=== PATIENT | female | born 1985 | race Caucasian/White ===

== ENCOUNTER 2018-03-27 12:56 | Emergency (ER) | payer MEDICAID, OTHER ==
[~2018-03-27] VITALS: Ht 157.5 cm; Wt 48.9 kg
[~2018-03-27 12:56] MED LIST: birth control pill
[2018-03-27 12:59] VITALS: Ht 157.5 cm; Wt 48.9 kg
[2018-03-27] MEDS ORDERED: ONDANSETRON (ODT) 4 MG TAB ODT STA (13:18)
[2018-03-27] MEDS ORDERED: ACETAMINOPHEN 500 MG TAB PO STA (13:18)
[2018-03-27] MEDS ORDERED: AL HYDROX/MG HYDROX/SIMETH 30 ML CUP PO ONE (13:30)
[2018-03-27] MEDS ORDERED: OMEP20CA16 PO (15:04)
--- NOTE | 2018-03-27 15:56 | ERD ---
ER Documentation Chief Complaint Chief Complaint abdominal pain since last night HPI 33-year-old female patient with no significant past medical history presents the ED complaining of abdominal pain that started last night. Patient reports that it is mainly in the epigastric region, feels like she may have vomited one episode with streaks of blood. Denies any melena, bloody stools. Denies any fever, chills, nausea, vomiting, diarrhea, neck stiffness. Patient reports that usually eating spicy, fried, fatty foods worsens her pain. ROS All systems reviewed and are negative except as per history of present illness. Medications Home Meds Active Scripts Omeprazole* (Omeprazole*) 20 Mg Capsule., 20 MG PO DAILY, #20 Prov:MANNY CALLES PA-C 03/27/18 Reported Medications [ control pill] No Conflict Check 01/30/13 Allergies Allergies: Coded Allergies: No Known Allergy (Verified , 12/07/07) PMhx/Soc Medical and Surgical Hx: pt denies Medical Hx, pt denies Surgical Hx Hx Alcohol Use: Yes (occationally) Hx Substance Use: Yes (marijuana once daily) Hx Tobacco Use: No Smoking Status: Never smoker Physical Exam Vitals Vital Signs Date Temp Pulse Resp B/P (MAP) Pulse Ox O2 O2 Flow FiO2 Time Delivery Rate 03/27/18 99.8 100 18 119/87 99 12:59 (98) Physical Exam Const: No acute distress Head: Atraumatic Eyes: Normal Conjunctiva ENT: Normal External Ears, Nose and Mouth. Neck: Full range of motion. No meningismus. Resp: Clear to auscultation bilaterally Cardio: Regular rate and rhythm, no murmurs Abd: Soft, epigastric tenderness, non distended. Normal bowel sounds. No McBurney's point. Negative Delacruz's sign. Skin: No petechiae or rashes Back: No midline or flank tenderness Ext: No cyanosis, or edema Neur: Awake and alert Psych: Normal Mood and Affect Results 24 hrs Laboratory Tests Test 03/27/18 13:32 03/27/18 13:36 POC Beta HCG, Qualitative NEGATIVE White Blood Count 5.4 10^3/ul Red Blood Count 3.81 10^6/ul Hemoglobin 11.6 g/dl Hematocrit 35.3 % Mean Corpuscular Volume 92.7 fl Mean Corpuscular Hemoglobin 30.4 pg Mean Corpuscular Hemoglobin Concent 32.9 g/dl Red Cell Distribution Width 12.7 % Platelet Count 273 10^3/UL Mean Platelet Volume 9.7 fl Immature Granulocytes % 0.200 % Neutrophils % 64.2 % Lymphocytes % 23.0 % Monocytes % 9.3 % Eosinophils % 2.6 % Basophils % 0.7 % Nucleated Red Blood Cells % 0.0 /100WBC Immature Granulocytes # 0.010 10^3/ul Neutrophils # 3.5 10^3/ul Lymphocytes # 1.2 10^3/ul Monocytes # 0.5 10^3/ul Eosinophils # 0.1 10^3/ul Basophils # 0.0 10^3/ul Nucleated Red Blood Cells # 0.0 10^3/ul Urine Color YELLOW Urine Clarity CLEAR Urine pH 6.0 Urine Specific [place] 1.010 Urine Ketones NEGATIVE mg/dL Urine Nitrite NEGATIVE mg/dL Urine Bilirubin NEGATIVE mg/dL Urine Urobilinogen NEGATIVE mg/dL Urine Leukocyte Esterase NEGATIVE Kathryn/ul Urine Hemoglobin NEGATIVE mg/dL Urine Glucose NEGATIVE mg/dL Urine Total Protein NEGATIVE mg/dl Sodium Level 137 mmol/L Potassium Level 4.0 mmol/L Chloride Level 100 mmol/L Carbon Dioxide Level 28 mmol/L Anion Gap 9 Blood Urea Nitrogen 13 mg/dl Creatinine 0.86 mg/dl Est Glomerular Filtrat Rate mL/min > 60 mL/min Glucose Level 88 mg/dl Calcium Level 9.4 mg/dl Total Bilirubin 0.4 mg/dl Direct Bilirubin 0.00 mg/dl Indirect Bilirubin 0.4 mg/dl Aspartate Amino Transf (AST/SGOT) 44 IU/L Alanine Aminotransferase (ALT/SGPT) 39 IU/L Alkaline Phosphatase 44 IU/L Total Protein 7.7 g/dl Albumin 4.5 g/dl Globulin 3.20 g/dl Albumin/Globulin Ratio 1.40 Lipase 209 U/L Current Medications Medications Dose Sig/Sarah Start Time Status Last (Trade) Ordered Route PRN Stop Time Admin Dose Reason Admin Ondansetron 4 mg ONCE STAT 03/27/18 DC 03/27/18 HCl (Zofran ODT 13:18 13:28 Odt) 03/27/18 13:22 Al 30 ml ONCE ONCE 03/27/18 DC 03/27/18 Hydrox/Mg PO 13:30 13:28 Hydrox/Simeth 03/27/18 icone 13:31 (Mag-Al Plus) 500 mg ONCE STAT 03/27/18 DC 03/27/18 Acetaminophen PO 13:18 13:28 (Tylenol 03/27/18 Tab) 13:22 Procedures/MDM 33-year-old female patient with no significant past medical history presents to ED complaining of epigastric pain that started last night. Patient is afebrile and nontoxic-appearing. Patient was further worked up with CBC, CMP, lipase, UA. Patient's pain and symptoms have improved after treatment with Tylenol, Mylanta, Zofran. CBC: No leukocytosis. No e/o of systemic infection. No e/o anemia. CMP: No e/o severe acidosis, alkalosis, renal failure, diabetic ketoacidosis, liver disease Lipase within normal limits. Urine: No leukocyte esterase, no nitrites, no hematuria. Urine : Negative Differentials include gastritis. Low suspicion for ectopic , ovarian t orsion, cholecystitis, choledocholithiasis, cholangitis, pancreatitis, appendicitis, bowel obstruction, ileus, volvulus, nephrolithiasis, pyelonephritis, hepatitis, perforated viscus, diverticulitis, strangulated/incarcerated hernia, DKA, acute abdomen, mesenteric ischemia or other emergent conditions. Diagnosis: Abdominal Pain Discharge medications: Omeprazole Follow up with primary care physician in 1-2 days for referral to exterior work helper for an endoscopy. Instructed patient to return to the ED farnaz ner for any worsening symptoms. Patient's questions were answered. Patient understood and agreed with discharge plan. Patient discharged stable. Departure Diagnosis: Primary Impression: Abdominal pain Abdominal location: unspecified location Qualified Codes: R10.9 - Unspecified abdominal pain Condition: Stable Patient Instructions: Abdominal Pain, Upper GI Endoscopy with Biopsy, Gastritis Vs. Ulcer Referrals: [facility] YOU HAVE RECEIVED A MEDICAL SCREENING EXAM AND THE RESULTS INDICATE THAT YOU DO NOT HAVE A CONDITION THAT REQUIRES URGENT TREATMENT IN THE EMERGENCY DEPARTMENT. FURTHER EVALUATION AND TREATMENT OF YOUR CONDITION CAN WAIT UNTIL YOU ARE SEEN IN YOUR DOCTORS OFFICE WITHIN THE NEXT 1-2 DAYS. IT IS YOUR RESPONSIBILITY TO MAKE AN APPOINTMENT FOR FOLOW-UP CARE. IF YOU HAVE A PRIMARY DOCTOR --you should call your primary doctor and schedule an appointment IF YOU DO NOT HAVE A PRIMARY DOCTOR YOU CAN CALL OUR PHYSICIAN REFERRAL HOTLINE AT IF YOU CAN NOT AFFORD TO SEE A PHYSICIAN YOU CAN CHOSE FROM THE FOLLOWING [facility] [address] [facility] [address] [facility] [address] [facility] [address] [facility] [address] [facility]. [facility] [address] [facility]. [facility] YOU HAVE RECEIVED A MEDICAL SCREENING EXAM AND THE RESULTS INDICATE THAT YOU DO NOT HAVE A CONDITION THAT REQUIRES URGENT TREATMENT IN THE EMERGENCY DEPARTMENT. FURTHER EVALUATION AND TREATMENT OF YOUR CONDITION CAN WAIT UNTIL YOU ARE SEEN IN YOUR DOCTORS OFFICE WITHIN THE NEXT 1-2 DAYS. IT IS YOUR RESPONSIBILITY TO MAKE AN APPOINTMENT FOR FOLOW-UP CARE. IF YOU HAVE A PRIMARY DOCTOR --you should call your primary doctor and schedule and appointment IF YOU DO NOT HAVE A PRIMARY DOCTOR YOU CAN CALL OUR PHYSICIAN REFERRAL HOTLINE AT . IF YOU CAN NOT AFFORD TO SEE A PHYSICIAN YOU CAN CHOSE FROM THE FOLLOWING [facility] INSTITUTIONS: [facility] [address] [place] [address] [facility] [address] [place] [address] [facility] [address] [place] [address] [facility] URGENT CARE/SPECIALTIES Additional Instructions: Call a exterior work helper TOMORROW for an appointment during the next 2-3 days for an endoscopy.See the doctor sooner or return here if your condition worsens before your appointment time. MANNY CALLES PA-C Mar 27, 2018 15:56
== END 2018-03-27 15:09 | disposition home or self-care (01) ==
LOC: FTE 12:56
DX: R10.13 Epigastric pain (principal); R11.10 Vomiting, unspecified
CPT/HCPCS: 80053; 81003; 81025; 83690; 85025; 99283